=== PATIENT | male | born 2000 | race Caucasian/White ===

== ENCOUNTER 2018-02-21 09:18 | Emergency (ER) | payer SELFPAY ==
[~2018-02-21] VITALS: Ht 177.8 cm; Wt 65.0 kg
[2018-02-21 09:25] VITALS: BP 111/57; TEMP 97.8
[2018-02-21] MEDS ORDERED: FLEXERIL 1010 MG/TAB PO (10:20)
[2018-02-21 10:58] VITALS: PULSE 53
== END 2018-02-21 10:58 | disposition home or self-care (01) ==
LOC: COL.ER 09:18
DX: M54.12 Radiculopathy, cervical region (principal)
CPT/HCPCS: J1885; J2360